=== PATIENT | male | born 1990 | race Hispanic/Latino ===

== ENCOUNTER → 2024-04-05 | Outpatient (CLI) | payer BC | END | disposition home or self-care (01) | LOC: RAH 08:59 | PROVIDERS: ATTEND Family Medicine | DX: K76.89 Other specified diseases of liver (principal); R93.89 Abnormal findings on diagnostic imaging of other specified body structures | CPT/HCPCS: 74181 ==

== ENCOUNTER → 2024-07-08 | Outpatient (CLI) | payer BC ==
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
== END | disposition home or self-care (01) ==
LOC: RAH 14:01
PROVIDERS: ATTEND Family Medicine
DX: M43.07 Spondylolysis, lumbosacral region (principal); M51.9 Unspecified thoracic, thoracolumbar and lumbosacral intervertebral disc disorder; K76.89 Other specified diseases of liver
CPT/HCPCS: 72131

== ENCOUNTER → 2024-07-12 | Outpatient (CLI) | payer BC ==
[~2024-07-12] MED LIST: GADOTERATE MEGLUMINE 10 MMOL/20 ML VIAL IV ONE
--- NOTE | 2024-07-12 09:59 | HMCIMG ---
MR ABDOMEN W/WO CON HISTORY: Hepatic nodule COMPARISON: 04/05/2024 TECHNIQUE: MRI of the abdomen was performed utilizing multiple pulse sequences in axial, coronal and sagittal planes. Patient was given 18 cc of Clariscan through intravenous route. Dynamic imaging technique was used. FINDINGS: No pleural effusion is seen bilaterally. There is hyperintense focus measuring 11 x 13 mm on the T2-weighted images with peripheral enhancement suspicious for hemangioma in a proper clinical setting. Liver measures 15 cm. Spleen measures 8.3 cm. Adrenal glands and pancreas are grossly unremarkable. Both kidneys are seen without hydronephrosis. There is no evidence of adenopathy or ascites. No definite gallstone is seen. IMPRESSION: 1. Findings suspicious for hemangioma is seen in the right hepatic lobe laterally and a proper clinical setting. This was also seen on previous study.
== END | disposition home or self-care (01) ==
LOC: RAH 08:02
PROVIDERS: ATTEND Family Medicine
DX: K76.89 Other specified diseases of liver (principal); M51.369 Other intervertebral disc degeneration, lumbar region without mention of lumbar back pain or lower extremity pain
CPT/HCPCS: 74183; A9575